=== PATIENT | female | born 1970 | race Two or more races ===

== ENCOUNTER 2024-06-11 01:15 | Emergency (ER) | payer BC, OTHER ==
[~2024-06-11] VITALS: Ht 177.8 cm; Wt 86.4 kg
[2024-06-11 02:12] LABS: Chloride 109 mmol/L (98-107); Potassium 3.2 mmol/L (3.5-5.1); Sodium 140 mmol/L (136-145)
[2024-06-11 02:13] LABS: Anion Gap 8 (5-15); Carbon Dioxide 23 mmol/L (20-31)
[2024-06-11 02:14] LABS: Calcium 9.7 mg/dL (8.7-10.4)
[2024-06-11 02:18] LABS: Glucose 189 mg/dL (74-106)
[2024-06-11 02:19] LABS: Basophils # (auto) 0.1 10 ^3/uL (0-0.2); Basophils % (auto) 0.7 % (0.0-2.0); Eosinophils # (auto) 0.1 10 ^3/uL (0-0.8); Eosinophils % (auto) 0.8 % (0.0-7.0); Hematocrit 41.3 % (36.0-46.0); Hemoglobin 14.2 g/dL (12.2-16.2); Lymphocytes # (auto) 2.3 10 ^3/uL (0.4-5.4); Lymphocytes % (auto) 29.1 % (10.0-50.0); Mean Corpuscular Hgb Conc. 34.3 g/dL (32.0-36.0); Mean Corpuscular Volume 90.2 fL (80.0-100.0); Monocytes # (auto) 0.3 10 ^3/uL (0-1.3); Monocytes % (auto) 4.5 % (0.0-12.0); Neutrophils % (auto) 64.9 % (37.0-80.0); Nucleated Red Blood Cells % 0.1 %; Platelet Count (auto) 203 10^3/uL (140-450); Red Blood Cells 4.58 10^6/uL (4.0-5.20); Red Cell Distribution Width 13.5 % (11.8-14.3); White Blood Cell 7.8 10^3/uL (4.4-10.8)
[2024-06-11 02:19] LABS: BUN/Creatinine Ratio 23.9 (10.0-20.0); Blood Urea Nitrogen 21 mg/dL (9-23); Lipase 43 U/L (12-53)
[2024-06-11] MEDS: fentaNYL CITRATE 100 MCG/2 ML VL IV ONE (02:56)
[2024-06-11] MEDS: KETOROLAC TROMETH 30 MG/ML 1ML VIAL IV ONE (02:57)
[2024-06-11] MEDS: SODIUM CHLORIDE 0.9% 2,000 ML IV ONE (02:57)
[2024-06-11 03:02] VITALS: BP 133/68; TEMP 98.1
[2024-06-11 03:07] VITALS: PULSE 73; RESP 18; O2SAT 100
[2024-06-11] MEDS: POTASSIUM CHL 20 Meq TABLET PO ONE (04:15)
[2024-06-11] MEDS ORDERED: DICY10CA PO (05:27)
== END 2024-06-11 06:10 | disposition home or self-care (01) ==
LOC: ER 01:15
DX: K80.20 Calculus of gallbladder without cholecystitis without obstruction (principal); R42 Dizziness and giddiness; Z90.710 Acquired absence of both cervix and uterus
CPT/HCPCS: 36415; 74176; 80048; 83690; 85025; 96361; 96374; 96375; 99285; J1885; J3010; J7030

== ENCOUNTER 2024-12-15 19:24 | Inpatient (IN) | payer BC ==
[~2024-12-15] VITALS: Ht 177.8 cm; Wt 87.1 kg
[~2024-12-15 19:24] MED LIST: DICY10CA PO
[2024-12-15 19:42] VITALS: BP 150/89; RESP 18; TEMP 98.1; O2SAT 95
--- NOTE | 2024-12-15 19:54 | ED.PDOC ---
History of Present Illness HPI Comments 54 y/o F is BIBA for c/o palpitations and dizziness, today. Per EMS, patient called after endorses on sudden and unprovoked onset of symptoms, while packing item in preparation of moving insider her garage, this evening. On scene, she was noted to have been found in sinus tachycardiac with PAC's via 12lead EKG. Since arrival to ED, patient reports on symptoms resolving on their own and only having occasional "flutters" in her chest. She states on having no significant cardiac history. Reports ceasing tobacco cigarette use for 1 year, now. Denies having any symptoms at this time. Chief Complaint: Palpitations Time Seen by MD: 19:30 Reviewed Notes: Nurses Notes, Land Lease Information Clerk Notes, Medications, Allergies Allergies: Coded Allergies: NO KNOWN ALLERGIES (Unverified , 06/11/24) Home Meds Active Scripts Dicyclomine Hcl (BENTYL CAPSULE) 10 Mg Cp, 10 CAP PO TID for 2 Days, #20 CAP 3 Refills Prov:EDITH URRUTIA MD 06/11/24 Information Source: Patient, Emergency Med Personnel Mode of Arrival: EMS Severity: Moderate Timing: Hours Duration: Since onset Prehospital treatment: 12 Lead EKG, Corporate Quality Engineer Past Medical History PAST MEDICAL HISTORY: Depression, Gallstones Surgical History: Hysterectomy Surgical History (Other): laparoscopy s/p endometriosis, and breast augmentation, [employer] 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 Family History Family History: Unknown Social History Smoker: Non-Smoker, Quit Greater Than 1 Year, Cigarettes Alcohol: Sober (6 years) Drugs: Denies Drug Use All Other Systems: Reviewed and Negative (Comprehensive systems review obtained and negative except for what is stated in the HPI.) Physical Exam General Appearance: No Apparent Distress, Normal HEENT: Normal ENT Inspection, Pharynx Normal, TMs Normal Neck: Full Range of Motion, Non-Tender, Normal, Normal Inspection Respiratory: Chest Non-Tender, Lungs Clear, No Accessory Muscle Use, No Respiratory Distress, Normal Breath Sounds Cardiovascular: No Edema, No JVD, No Murmur, No Gallop, Normal Peripheral Pulses, Tachycardia, Other (regular rhythm ) Breast Exam: Deferred Gastrointestinal: No Organomegaly, Non Tender, No Pulsatile Mass, Normal Bowel Sounds, Soft Genitalia: Deferred Pelvic: Deferred Rectal: Deferred Extremities: No calf tenderness, Normal capillary refill, Normal inspection, Normal range of motion, Non-tender, No pedal edema Musculoskeletal : Apperance: Normal Neurologic: Alert, child advocate II-XII nml as Tested, No Motor Deficits, Normal Affect, Normal Mood, No Sensory Deficits Cerebellar Function: Normal Reflexes: Normal Skin: Dry, Normal Color, Warm Lymphatic: No Adenopathy Was a procedure done? Was a procedure done?: No EKG EKG : Pulse Rate (adult): 103 [place]: Normal Cardiac Rhythm: ST Block: None Hypertrophy: None ST: Normal Differential Dx Considerations may include: Anxiety, arrhythmia, tachycardia, electrolyte imbalance, dehydration, viral syndrome, URI, UTI, SD, PE, among others X-Ray, Labs, Meds, VS Vital Signs Date Time Temp Pulse Resp B/P (MAP) Pulse Ox O2 Delivery O2 Flow Rate FiO2 12/15/24 20:20 101 12/15/24 19:54 103 12/15/24 19:42 98.1 101 18 150/89 (109) 95 98.1 12/15/24 19:24 103 Lab Test 12/15/24 20:54 12/15/24 19:50 Range/Units Troponin I High Sensitivity < 3 L < 3 L </=34 ng/L White Blood Count 6.2 4.4-10.8 10^3/uL Red Blood Count 4.70 4.0-5.20 10^6/uL Hemoglobin 14.1 12.2-16.2 g/dL Hematocrit 41.4 36.0-46.0 % Mean Corpuscular Volume 88.0 80.0-100.0 fL Mean Corpuscular Hemoglobin 30.0 28.0-32.0 pg Mean Corpuscular Hemoglobin Concent 34.1 32.0-36.0 g/dL Red Cell Distribution Width 13.6 11.8-14.3 % Platelet Count 211 140-450 10^3/uL Mean Platelet Volume 9.4 6.9-10.8 fL Neutrophils (%) (Auto) 50.6 37.0-80.0 % Lymphocytes (%) (Auto) 37.8 10.0-50.0 % Monocytes (%) (Auto) 8.1 0.0-12.0 % Eosinophils (%) (Auto) 2.6 0.0-7.0 % Basophils (%) (Auto) 0.9 0.0-2.0 % Neutrophils # (Auto) 3.1 1.6-8.6 10 ^3/uL Lymphocytes # (Auto) 2.3 0.4-5.4 10 ^3/uL Monocytes # (Auto) 0.5 0-1.3 10 ^3/uL Eosinophils # (Auto) 0.2 0-0.8 10 ^3/uL Basophils # (Auto) 0.1 0-0.2 10 ^3/uL Nucleated Red Blood Cells 0.1 % Sodium Level 145 136-145 mmol/L Potassium Level 3.1 L 3.5-5.1 mmol/L Chloride Level 110 H 98-107 mmol/L Carbon Dioxide Level 25 20-31 mmol/L Anion Gap 10 5-15 Blood Urea Nitrogen 19 9-23 mg/dL Creatinine 0.96 0.550-1.02 mg/dL Glomerular Filtration Rate Calc 69 >90 mL/min BUN/Creatinine Ratio 19.8 10.0-20.0 Serum Glucose 116 H 74-106 mg/dL Calcium Level 9.8 8.7-10.4 mg/dL B-Type Natriuretic Peptide 15.10 0-100 pg/mL [place] [id number] Ph: [phone] DIAGNOSTIC IMAGING Diagnostic Imaging Report : [id number] Signed PATIENT: JAYLEEN FAULKNER ACCT: [id number] UNIT: [id number] : 1970 LOC: ER ROOM / BED: / AGE / SEX: 54 / F ADM STATUS: REG ER SERVICE 38 ORDERING PHYSICIAN: KHADIJAH GODINEZ MD PROCEDURE(s): CXRP - CHEST PORTABLE REASON: palpitations ORDER NUMBER(s): [id number], ACCESSION NUMBER(s): [id number] CHEST RADIOGRAPH Indication: palpitations Technique: Single frontal view of the chest was obtained Comparison: None FINDINGS: Lines and Tubes: None Lungs: No focal consolidation. Pleura: No effusion. No pneumothorax. Cardiomediastinal contours: Unremarkable Bones: No acute osseous abnormality. IMPRESSION: No acute cardiopulmonary disease. ATED BY: ANUJA MÉNDEZ DO DICTATED DATE/TIME: 12/15/242011 SIGNED BY: ANUJA MÉNDEZ DO SIGNED DATE/TIME: 12/15/242011 CC: Time of 1ST Reevaluation: 20:00 Reevaluation 1ST: Unchanged Patient Education/Counseling: Diagnosis, Treatment Family Education/Counseling: Diagnosis, Treatment Additional Information Previous visits: June 11, 2024 encounter for cholelithiasis The following tests were ordered, and results were reviewed by me: EKG, CXR, CBC, BMP, BNP, troponin Additional Information was gathered from interviewing the following independent historians: EMS, spouse I reviewed and agreed with the following test results read by other providers: CXR I discussed treatment and results with medical personnel and: Patient, spouse Departure 1 Departure Time of Disposition: 22:59 (Patient with palpitations and shortness of breath. Patient's labs and troponins are negative. EKG you would PACs. Chest x-ray is benign. We will admit patient for further workup.) Impression: Primary Impression: Palpitations Additional Impression: Shortness of breath Disposition: ADMITTED INPATIENT Admit to: Med Surg Condition: Serious Critical Care Note Critical Care Time?: No Stability Stability form required: No Heart Score Heart Score: Heart Score Response (Comments) Value History Slightly Suspicious 0 EKG Normal 0 Age 45-64 1 Risk Factors 1 or 2 risk factors 1 Troponin Normal limit 0 Total 2 I personally scribed for KHADIJAH GODINEZ MD ([email or web address]) on 12/15/24 at 19:54. Electronically submitted by Darrian Roberts ([email or web address]). I personally scribed for KHADIJAH GODINEZ MD ([email or web address]) on 12/15/24 at 21:23. Electronically submitted by Darrian Roberts ([email or web address]). KHADIJAH GODINEZ MD Dec 15, 2024 19:54
[2024-12-15 20:02] LABS: Basophils # (auto) 0.1 10 ^3/uL (0-0.2); Basophils % (auto) 0.9 % (0.0-2.0); Eosinophils # (auto) 0.2 10 ^3/uL (0-0.8); Eosinophils % (auto) 2.6 % (0.0-7.0); Hematocrit 41.4 % (36.0-46.0); Hemoglobin 14.1 g/dL (12.2-16.2); Lymphocytes # (auto) 2.3 10 ^3/uL (0.4-5.4); Lymphocytes % (auto) 37.8 % (10.0-50.0); Mean Corpuscular Hgb Conc. 34.1 g/dL (32.0-36.0); Monocytes # (auto) 0.5 10 ^3/uL (0-1.3); Monocytes % (auto) 8.1 % (0.0-12.0); Neutrophils # (auto) 3.1 10 ^3/uL (1.6-8.6); Neutrophils % (auto) 50.6 % (37.0-80.0); Nucleated Red Blood Cells % 0.1 %; Platelet Count (auto) 211 10^3/uL (140-450); Red Cell Distribution Width 13.6 % (11.8-14.3); White Blood Cell 6.2 10^3/uL (4.4-10.8)
[2024-12-15 20:11] LABS: Anion Gap 10 (5-15); Carbon Dioxide 25 mmol/L (20-31)
[2024-12-15 20:12] LABS: Calcium 9.8 mg/dL (8.7-10.4); Chloride 110 mmol/L (98-107); Potassium 3.1 mmol/L (3.5-5.1); Sodium 145 mmol/L (136-145)
--- NOTE | 2024-12-15 20:14 | DVH ---
CHEST RADIOGRAPH Indication: palpitations Technique: Single frontal view of the chest was obtained Comparison: None FINDINGS: Lines and Tubes: None Lungs: No focal consolidation. Pleura: No effusion. No pneumothorax. Cardiomediastinal contours: Unremarkable Bones: No acute osseous abnormality. IMPRESSION: No acute cardiopulmonary disease.
[2024-12-15 20:17] LABS: BUN/Creatinine Ratio 19.8 (10.0-20.0); Blood Urea Nitrogen 19 mg/dL (9-23)
[2024-12-15 20:19] LABS: Glucose 116 mg/dL (74-106)
[2024-12-15 20:20] VITALS: PULSE 101
[2024-12-15] MEDS ORDERED: ONDANSETRON HCL 4 MG/2 ML VIAL IV PRN (23:45)
[2024-12-15] MEDS ORDERED: ACETAMINOPHEN 325 MG TAB PO PRN (23:45)
--- NOTE | 2024-12-15 23:45 | DVHHPRES ---
History of Present Illness Resident Creating Document: BINH GORDON RESIDENT History of Present Illness Patient is a 54-year-old female with past medical history of cholelithiasis and endometriosis who was brought in for palpitations and dizziness which she experienced today. Patient notes she had sudden onset of symptoms while she was working in her garage which is what prompted this visit to the hospital. Of note, on scene patient was found to be tachycardic with PACs noted. Patient continues to have intermittent sensations of palpitations. EKG showed sinus tachycardia with abnormal R-wave progression, serial troponins were less than 3 and BNP was 15. CXR showed no acute cardiopulmonary abnormality. Echocardiogram was ordered for the patient. Past Medical History Endometriosis, cholelithiasis Past Surgical History Hysterectomy, laparoscopic adhesion of endometrial lesions, breast augmentation surgery Past Social History Smoking: Quit 1 year ago Alcohol: Quit 6 years ago Drugs: Denies Allergies: Denies Review of Systems Constitutional: No: Fever, Chills, Sweats, Weakness, Malaise, Other Eyes: No: Pain, Vision change, Conjunctivae inflammation, Eyelid inflammation, Other, Redness ENT: No: Ear pain, Ear discharge, Nose pain, Nose discharge, Nose congestion, Mouth pain, Mouth swelling, Throat pain, Throat swelling, Other Respiratory: No: Cough, Dry, Shortness of breath, SOB with excertion, Wheezing, Hemoptysis, Pleuritic Pain, Sputum, Wheezing, Other Cardiovascular: Palpitations; No: Chest Pain, Orthopnea, Paroxysmal Noc. Dyspnea, Edema, Lt Headedness, Other Gastrointestinal: No: Nausea, Vomiting, Abdominal Pain, Diarrhea, Constipation, Melena, Hematochezia, Other Genitourinary: No Dysuria, No Frequency, No Incontinence, No Hematuria, No Retention, No Other Musculoskeletal: No: other, neck pain, shoulder pain, arm pain, back pain, hand pain, leg pain, foot pain Skin: No: Rash, Lesions, Jaundice, Bruising, Other Neurological: No: Weakness, Numbness, Incoordination, Change in speech, Confusion, Seizures, Other Allergies: Coded Allergies: NO KNOWN ALLERGIES (Unverified , 06/11/24) Exam Vital Signs Vital Signs Date Time Temp Pulse Resp B/P (MAP) Pulse Ox O2 Delivery O2 Flow Rate FiO2 12/15/24 20:20 101 12/15/24 19:42 98.1 18 150/89 (109) 95 98.1 General Appearance: Alert, Oriented X3, Cooperative, No acute distress HEENT: Atraumatic, PERRLA, EOMI, Other (Dry mucous membranes) Respiratory: Normal air movement Cardiovascular: Regular rate, Normal S1, Normal S2 Abdominal: Normal bowel sounds, Soft, No tenderness Neuro: Normal gait, Normal speech, Sensation intact Psych/Mental Status: Mental status NL, Mood NL Labs/Xrays Labs Test 12/15/24 20:54 12/15/24 19:50 Range/Units Troponin I High Sensitivity < 3 L </=34 ng/L White Blood Count 6.2 4.4-10.8 10^3/uL Red Blood Count 4.70 4.0-5.20 10^6/uL Hemoglobin 14.1 12.2-16.2 g/dL Hematocrit 41.4 36.0-46.0 % Mean Corpuscular Volume 88.0 80.0-100.0 fL Mean Corpuscular Hemoglobin 30.0 28.0-32.0 pg Mean Corpuscular Hemoglobin Concent 34.1 32.0-36.0 g/dL Red Cell Distribution Width 13.6 11.8-14.3 % Platelet Count 211 140-450 10^3/uL Mean Platelet Volume 9.4 6.9-10.8 fL Neutrophils (%) (Auto) 50.6 37.0-80.0 % Lymphocytes (%) (Auto) 37.8 10.0-50.0 % Monocytes (%) (Auto) 8.1 0.0-12.0 % Eosinophils (%) (Auto) 2.6 0.0-7.0 % Basophils (%) (Auto) 0.9 0.0-2.0 % Neutrophils # (Auto) 3.1 1.6-8.6 10 ^3/uL Lymphocytes # (Auto) 2.3 0.4-5.4 10 ^3/uL Monocytes # (Auto) 0.5 0-1.3 10 ^3/uL Eosinophils # (Auto) 0.2 0-0.8 10 ^3/uL Basophils # (Auto) 0.1 0-0.2 10 ^3/uL Nucleated Red Blood Cells 0.1 % Sodium Level 145 136-145 mmol/L Potassium Level 3.1 L 3.5-5.1 mmol/L Chloride Level 110 H 98-107 mmol/L Carbon Dioxide Level 25 20-31 mmol/L Anion Gap 10 5-15 Blood Urea Nitrogen 19 9-23 mg/dL Creatinine 0.96 0.550-1.02 mg/dL Glomerular Filtration Rate Calc 69 >90 mL/min BUN/Creatinine Ratio 19.8 10.0-20.0 Serum Glucose 116 H 74-106 mg/dL Calcium Level 9.8 8.7-10.4 mg/dL B-Type Natriuretic Peptide 15.10 0-100 pg/mL Assessment/Plan Assessment/Plan Palpitations, symptomatic - CXR: No acute cardiopulmonary disease - serial troponins less than 3 - EKG showed sinus tachycardia with abnormal R-wave progression - BNP 15 - ordered echocardiogram - ordered UA Hypokalemia - repleted History of endometriosis History of cholelithiasis - monitor DVT prophylaxis: SCDs Plan discussed with patient Plan discussed with Dr. Buchanan Plan discussed with: Patient, Other (RN) Date of Service: Dec 15, 2024 Billing Provider: WESLEY BUCHANAN MD Common Visit Codes: 32263-[id number] INP/OBS CARE (HIGH) BINH GORDON RESIDENT Dec 15, 2024 23:45
[2024-12-16] MEDS ORDERED: POTASSIUM EFFERVESENT TAB 25 MEQ PO ONE (02:15)
--- NOTE | 2024-12-16 05:02 | ECG ---
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
--- NOTE | 2024-12-16 05:03 | ECG ---
[facility] Test Date: 2024-12-15 Test Time: 20:20:11 Pat Name: JAYLEEN FAULKNER Department: ED Room: [address] [place] [address] A Gender: F Custodian: SCOTTIE : 1970 Requested By: KHADIJAH GODINEZ Order Number: [id number] Reading MD: Jeremy Miranda Measurements Intervals [place] Rate: 101 P: 66 ID: [id number] QRS: 38 QRSD: 100 T: 54 QT: 326 QTc: 423 Interpretive Statements Sinus tachycardia Abnormal R-wave progression, early transition Electronically Signed On 12-17-2024 17:09:08 PDT by Jeremy Miranda Please click the below link to view image of tracing.
--- NOTE | 2024-12-16 06:19 | DVHDSRES ---
Discharge Summary Date of Admission Resident Creating Document: BINH GORDON RESIDENT Dec 15, 2024 at 23:42 Date of Discharge: Dec 16, 2024 Admitting Diagnosis Palpitations with dizziness Labs/Diagnostic Data: Laboratory Results Test 12/15/24 20:54 12/15/24 19:50 Troponin I High Sensitivity < 3 ng/L (</=34) White Blood Count 6.2 10^3/uL (4.4-10.8) Red Blood Count 4.70 10^6/uL (4.0-5.20) Hemoglobin 14.1 g/dL (12.2-16.2) Hematocrit 41.4 % (36.0-46.0) Mean Corpuscular Volume 88.0 fL (80.0-100.0) Mean Corpuscular Hemoglobin 30.0 pg (28.0-32.0) Mean Corpuscular Hemoglobin Concent 34.1 g/dL (32.0-36.0) Red Cell Distribution Width 13.6 % (11.8-14.3) Platelet Count 211 10^3/uL (140-450) Mean Platelet Volume 9.4 fL (6.9-10.8) Neutrophils (%) (Auto) 50.6 % (37.0-80.0) Lymphocytes (%) (Auto) 37.8 % (10.0-50.0) Monocytes (%) (Auto) 8.1 % (0.0-12.0) Eosinophils (%) (Auto) 2.6 % (0.0-7.0) Basophils (%) (Auto) 0.9 % (0.0-2.0) Neutrophils # (Auto) 3.1 10 ^3/uL (1.6-8.6) Lymphocytes # (Auto) 2.3 10 ^3/uL (0.4-5.4) Monocytes # (Auto) 0.5 10 ^3/uL (0-1.3) Eosinophils # (Auto) 0.2 10 ^3/uL (0-0.8) Basophils # (Auto) 0.1 10 ^3/uL (0-0.2) Nucleated Red Blood Cells 0.1 % Sodium Level 145 mmol/L (136-145) Potassium Level 3.1 mmol/L (3.5-5.1) Chloride Level 110 mmol/L (98-107) Carbon Dioxide Level 25 mmol/L (20-31) Anion Gap 10 (5-15) Blood Urea Nitrogen 19 mg/dL (9-23) Creatinine 0.96 mg/dL (0.550-1.02) Glomerular Filtration Rate Calc 69 mL/min (>90) BUN/Creatinine Ratio 19.8 (10.0-20.0) Serum Glucose 116 mg/dL (74-106) Calcium Level 9.8 mg/dL (8.7-10.4) B-Type Natriuretic Peptide 15.10 pg/mL (0-100) Other Laboratory Tests 12/15/24 19:50 Brief Hx & Hospital Course: Patient is a 54-year-old female with past medical history of cholelithiasis and endometriosis who was brought in for palpitations and dizziness which she experienced today. Patient notes she had sudden onset of symptoms while she was working in her garage which is what prompted this visit to the hospital. Of note, on scene patient was found to be tachycardic with PACs noted. Patient continues to have intermittent sensations of palpitations. EKG showed sinus tachycardia with abnormal R-wave progression, serial troponins were less than 3 and BNP was 15. CXR showed no acute cardiopulmonary abnormality. Echocardiogram and carotid Doppler was ordered for the patient. However, patient eloped before further evaluation and management could be completed. Tried to reach the patient on the number given on file, but no answer. Condition at Discharge: Undetermined Final Diagnosis/Problems List Symptomatic palpitations Presyncope History of endometriosis Hypokalemia Cholelithiasis without cholecystitis Discharge Disposition: Eloped Discharge Statement: "Patient was advised to return to the ER or call 911 if any headaches, dizziness, shortness of breath, chest pain, abdominal pain, bleeding, fevers, or worsening of medical condition. Patient was counseled about treatment plan, medications, possible side effects, patientverbalized understanding. All questions were answered to the best of my ability. This discharge took greater then 30 minutes in planning, reviewing documentation, counseling the patient, and discussing with other team members." ASSESSMENT ASSESSMENT Assessment BINH GORDON RESIDENT Dec 16, 2024 06:19
== END 2024-12-16 03:02 | disposition left against medical advice (07) | DRG 641 ==
LOC: EDBD 19:24 → ER 19:24 → OVERFLOW 23:42
PROVIDERS: ADMIT Internal Medicine; ATTEND Internal Medicine
DX: E87.6 Hypokalemia (principal); R00.2 Palpitations; K80.20 Calculus of gallbladder without cholecystitis without obstruction; R00.0 Tachycardia, unspecified; F17.210 Nicotine dependence, cigarettes, uncomplicated; Z53.29 Procedure and treatment not carried out because of patient's decision for other reasons; N80.9 Endometriosis, unspecified; F32.A Depression, unspecified; Z79.899 Other long term (current) drug therapy; Z90.710 Acquired absence of both cervix and uterus
CPT/HCPCS: 36415; 71045; 80048; 83880; 84484; 85025; 93005; G0378